=== PATIENT | male | born 1975 | race Caucasian/White ===

== ENCOUNTER 2025-05-23 18:17 | Emergency (ER) | payer SELFPAY ==
[~2025-05-23] VITALS: Ht 175.3 cm; Wt 79.0 kg
[2025-05-23 18:43] VITALS: O2SAT 98
[2025-05-23] MEDS ORDERED: CIPHCO RIGHT EAR (21:42)
[2025-05-23 22:03] VITALS: BP 142/88; PULSE 76; RESP 18; TEMP 37.1; O2SAT 99
== END 2025-05-23 21:55 | disposition home or self-care (01) ==
LOC: ER 18:17
DX: H66.91 Otitis media, unspecified, right ear (principal)
CPT/HCPCS: 99281; 99283